=== PATIENT | female | born 1965 | race Caucasian/White ===

== ENCOUNTER 2016-08-20 16:59 | Emergency (ER) | payer OTHER ==
--- NOTE | ~2016-08-20 | EKG ---
PATIENT: BLACK HINDS UNIT #: [id number] Ventricular Rate: 127 BPM Atrial Rate: 127 BPM P-R Interval: 138 ms QRS Duration: 72 ms Q-T Interval: 308 ms QTC Calculation(Bezet): 447 ms P [place]: 63 degrees Calculated R [place]: 75 degrees Calculated T [place]: 74 degrees Diagnosis Line: Sinus tachycardia Diagnosis Line: Biatrial enlargement Diagnosis Line: Nonspecific ST abnormality Diagnosis Line: Abnormal ECG Diagnosis Line: No previous ECGs available Diagnosis Line: Confirmed by DEMIAN URBINA MD ([id number]) on 08/25/2016 Diagnosis Line: 5:33:32 PM INTERPRETING MD: CIARA HARDY
[2016-08-20 16:46] LABS: BASOPHIL% 0.5 % (0-2.5); EOSINOPHIL# 0.1 X10e3 (0-0.7); EOSINOPHIL% 1.1 % (0.0-7.0); HEMATOCRIT 48.9 % (35.0-45.0); HEMOGLOBIN 16.4 gm/dL (12.0-16.0); LYMPHOCYTE% 22.6 % (17.0-45.0); MEAN CELL VOLUME 93.7 FL (83-96); MEAN CORPUSCULAR HEMOGLOBIN 31.4 PG (28-34); MEAN CORPUSCULAR HGB CONC 33.5 g/dL (30-36); MEAN PLATELET VOLUME 8.7 FL (6.5-11.5); MONOCYTE# 0.6 X10e3 (0-1.0); MONOCYTE% 7.1 % (3.0-12.0); NEUTROPHIL% 68.7 % (40-75); PLATELET COUNT 249 X10e3 (140-420); RED BLOOD COUNT 5.22 X10e (3.90-5.30); RED CELL DISTRIBUTION WIDTH 13.7 % (11.0-15.5); WHITE BLOOD COUNT 8.8 X10e3 (4.0-10.5)
[2016-08-20 16:47] LABS: DIFF IND NO
[2016-08-20 16:53] LABS: INR 1.1; PROTHROMBIN TIME (PATIENT) 12.7 SECONDS (9.5-12.4)
[~2016-08-20 16:59] MED LIST: ALKA SELTZER CHEWS; B12; B12 PO; BACLOFEN10 MG; BACLOFEN10 MG PO; BIOTIN PO; CALCIUM + D 6001 TA1 PO; CLINDAMYCIN HC300 MG PO; DOXYCYCLINE PO; EFFEXOR PO; EFFEXOR XR PO; EFFEXOR37.5 MG PO; EFFEXOR75 M2 PO; FISH OIL 1,0001 EACH PO; FLEXERIL10 MG PO; GABAPENTIN PO; GARCINIA PO; IMMODIUM; LAMICTAL PO; LEVOTHYROXINE PO; LIPITOR PO; LITHIUM CARBON600 MG PO; LITHIUM PO; LOMOTIL TABLET1 TAB; LOMOTIL WHITE2.5 M1; LOPRESSOR; LOPRESSOR PO; LORTAB 10-3251 EACH PO; LORTAB 5-325 M1 EACH PO; MEDROXYPROGESTERONE PO; MEGA BIOTIN10000 MCG PO; METOPROLOL TAR25 MG PO; OXYCODONE15 MG PO; PEPCID PO; PERCOCET PO; PRILOSEC40 MG; RETIN A; ROBAXIN PO; SEROQUEL PO; SEROQUEL300 M1 PO; SPIRONOLACTONE PO; STOOL SOFTENER100 M1; SYNTHROID125 PO; VICODIN 5/500 T1 TAB PO; VITAMIN D 3; VITAMIN D1000 UNI1; VOLTAREN50 MG PO; XANAX PO; XANAX1 MG PO
[2016-08-20 17:01] LABS: PARTIAL THROMBOPLASTIN TIME 28.4 SECONDS (25.6-38.1)
[2016-08-20 17:03] LABS: ALBUMIN SERUM 4.6 g/dL (3.5-5.0); ALKALINE PHOSPHATASE 87 U/L (32-92); ALT (SGPT) 32 U/L (10-40); AST (SGOT) 27 U/L (10-42); BILIRUBIN, DIRECT 0.2 mg/dL (0.0-0.2); BILIRUBIN,INDIRECT 0.5 mg/dL (0.0-0.9); BILIRUBIN,TOTAL 0.7 mg/dL (0.2-2.0); BLOOD UREA NITROGEN 17 mg/dL (9-23); BUN/CREATININE RATIO 15.45; CALCIUM SERUM 9.9 mg/dL (8.4-10.2); CARBON DIOXIDE 21 mmol/L (22-31); CHLORIDE 105 mmol/L (100-111); CREATININE SERUM 1.1 mg/dL (0.6-1.4); GLOM FILT RATE Estimated 56.1 mL/min (>60); GLUCOSE FASTING 136 mg/dL (70-110); POTASSIUM 3.5 mmol/L (3.5-5.1); PROTEIN TOTAL SERUM 8.3 g/dL (6.0-8.3); SALICYLATE <4.0 mg/dL; SODIUM 138 mmol/L (135-145)
[2016-08-20 17:05] LABS: ACETAMINOPHEN <10 ug/mL; ALCOHOL BLOOD <5 mg/dL (0)
[2016-08-20 18:09] LABS: URINE SOURCE CLEAN CATCH
[2016-08-20 18:12] LABS: MICRO INDICATED? NO; URINE APPEARANCE CLEAR; URINE BILIRUBIN NEG (NEG); URINE BLOOD NEG (NEG); URINE COLOR YELLOW; URINE GLUCOSE NEG (NORM); URINE KETONE NEG (NEG); URINE LEUKOCYTE ESTERASE NEG (NEG); URINE NITRATE NEG (NEG); URINE PH 5.5 (5-8); URINE PROTEIN NEG (NEG); URINE SPECIFIC GRAVITY <=1.005 (1.003-1.035); URINE UROBILINOGEN 0.2 MG/DL (NORM)
[2016-08-20 18:21] LABS: AMPHETAMINE NEG (NEG); BARBITURATES NEG (NEG); BENZODIAZEPINES POS (NEG); COCAINE NEG (NEG); MARIJUANA NEG (NEG); OPIATES NEG (NEG); TRICYCLIC ANTIDEPRESSANTS POS (NEG); U METHADONE NEG (NEG)
== END 2016-08-20 21:00 ==
LOC: SED 16:59
PROVIDERS: Emergency Medicine
DX: T43.591A Poisoning by other antipsychotics and neuroleptics, accidental (unintentional), initial encounter (principal); F31.9 Bipolar disorder, unspecified; F17.200 Nicotine dependence, unspecified, uncomplicated; Y92.9 Unspecified place or not applicable
CPT/HCPCS: 36415; 80048; 80076; 80307; 81003; 84703; 85025; 85610; 85730; 93005; 99285; G0480